=== PATIENT | female | born 1950 | race Hispanic/Latino ===

== ENCOUNTER 2019-03-01 10:15 | Day surgery (SDC) | payer MEDICARE ==
[~2019-03-01] VITALS: Ht 33 cm; Wt 65.8 kg
[~2019-03-01 10:15] MED LIST: CIPROFLOXACN500 MG PO; CRANBERRY125 MG PO; D31000 UNIT PO; KEFLEX500 M1 PO; KEFLEX500 MG PO; LEVOTHYROXIN100 MC1 PO; LEVOTHYROXIN112 MC1 OR; LEVOTHYROXIN25 MC1 PO; LEVOTHYROXIN50 MC1 PO; LEVOTHYROXIN50 MCG PO; LEVOTHYROXIN75 MCG PO; LEVOTHYROXIN88 MC1 PO; MULTI VIT PO; PYRIDIUM200 MG PO; ZOFRAN ODT4 MG PO
[2019-03-01 13:22] VITALS: BP 99/57
== END 2019-03-01 13:38 | disposition home or self-care (01) ==
LOC: ENDO 10:15 → ORM 10:15 → ENDO 10:40
PROVIDERS: ATTEND Internal Medicine Gastroenterology
PROC: 0DBL8ZX Excision of Transverse Colon, Via Natural or Artificial Opening Endoscopic, Diagnostic (ICD-10-PCS; principal; 2019-03-01)
PROC: 0DB48ZX Excision of Esophagogastric Junction, Via Natural or Artificial Opening Endoscopic, Diagnostic (ICD-10-PCS; 2019-03-01)
PROC: 0DB78ZX Excision of Stomach, Pylorus, Via Natural or Artificial Opening Endoscopic, Diagnostic (ICD-10-PCS; 2019-03-01)
DX: K57.31 Diverticulosis of large intestine without perforation or abscess with bleeding (principal); D12.3 Benign neoplasm of transverse colon; K64.8 Other hemorrhoids; K64.4 Residual hemorrhoidal skin tags; K29.51 Unspecified chronic gastritis with bleeding; K21.9 Gastro-esophageal reflux disease without esophagitis; Q40.8 Other specified congenital malformations of upper alimentary tract; K44.9 Diaphragmatic hernia without obstruction or gangrene; E03.9 Hypothyroidism, unspecified

== ENCOUNTER 2022-05-03 06:52 | Day surgery (SDC) | payer MEDICARE ==
[~2022-05-03] VITALS: Ht 154.9 cm; Wt 66.7 kg
[~2022-05-03 06:52] MED LIST changes: +ASPIRIN 81 LOW81 MG PO; +COLLAGEN PEPTIDE; +LEVOTHROID125 MCG PO; +MONTELUKAST SOD10 MG PO; +OMEPRAZOLE DR20 MG; +XANAX0.5 MG PO
[2022-05-03] MEDS ORDERED: MULTI 501 PO (07:32)
[2022-05-03] MEDS ORDERED: OSTEO BI-FLE PO (07:32)
[2022-05-03 09:38] VITALS: BP 117/62
== END 2022-05-03 09:36 | disposition home or self-care (01) ==
LOC: ENDO 06:52 → ORM 08:45 → ENDO 09:36
PROVIDERS: ATTEND Surgery
PROC: 0DB68ZX Excision of Stomach, Via Natural or Artificial Opening Endoscopic, Diagnostic (ICD-10-PCS; principal; 2022-05-03)
DX: K29.70 Gastritis, unspecified, without bleeding (principal); Z86.010 Personal history of colon polyps